=== PATIENT | female | born 1955 | race Caucasian/White ===

== ENCOUNTER 2017-10-20 22:34 | Observation (INO) | payer OTHER ==
[~2017-10-20 22:34] MED LIST: BACL20TA PO; CLON0.5T PO; GABA100C4 PO; GLIM2TAB PO; HYDR-3129 PO; LANTUS2P SQ; LISI-357 PO; METF-324 PO; PARO20TA PO; PERC10TA27 PO
[2017-10-20 22:38] VITALS: BP 110/77; PULSE 87; RESP 16; TEMP 97.7; O2SAT 94
--- NOTE | 2017-10-20 23:44 | PD ---
HPI Chief Complaint: Altered Mental Status Time Seen by Provider: 23:33 Travel History International Travel<30 days: No Contact w/Intl Traveler<30days: No Traveled to known affect area: No History of Present Illness HPI 61-year-old female presents to the emergency department from home by EMS transport for altered mentation. Patient has history of diabetes chronic pain syndrome seizure recurrent pancreatitis COPD and hepatitis C. No report of injury or fall. According to egg breaker report patient's blood sugar was elevated upon their arrival therefore they administered normal saline. Unknown history of ingestion of opiates or benzodiazepines. Medical records identifies the patient has been on both in the past. No report of alcohol consumption. No report of recent medical illness or febrile illness. Patient very somnolent but able to be awakened to name and mild tactile stimulation. Poor historian. [facility] Past Medical History Narrative Medical diabetes chronic pain syndrome seizure recurrent pancreatitis COPD depression hepatitis C; appendectomy cholecystectomy; alcohol use tobacco use substance use ; nursing notes reviewed Depression: Yes Cardiovascular Problems: Yes Chemotherapy: Yes (INTERFERON) Cirrhosis: Yes COPD: Yes Diabetes: Yes GERD: Yes Hepatitis: Yes (HEP C ) Pancreatitis: Yes Past Surgical History Abdominal Surgery: Yes (PANCREAS, GALLSTONES X 9) Appendectomy: Yes Cholecystectomy: Yes Hysterectomy: Yes Social History Alcohol Use: Yes (CURRENT 04/16/16.) Tobacco Use: Yes (2.5PPD) Substance Use: Yes Allergies-Medications (Allergen,Severity, Reaction): Coded Allergies: No Known Drug Allergies (Verified Allergy, Unknown, 10/20/17) Uncoded Allergies: steroids (Allergy, Severe, Rash, 04/16/16) Reported Meds & Prescriptions Reported Meds & Active Scripts Active Reported Omeprazole 40 Mg Cap 40 Mg DAILY Keppra (Levetiracetam) 1,000 Mg Tab 1,000 Mg PO BID Vitamin B-6 (Pyridoxine HCl) 50 Mg Tab 25 Mg PO DAILY Lisinopril 5 Mg Tab 5 Mg PO DAILY Melatonin 5 Mg Tab 3 Mg PO HS Vitamin E (Vitamin E Mixed) 100 Unit Tablet Synjardy (Empagliflozin-Metformin) 5-1,000 Mg Tab 1 Tab PO BIDPC Paroxetine (Paroxetine HCl) 40 Mg Tab 40 Mg PO DAILY Creon (Pancrelipase) 36,000-114,000-180,000 Units Cap 1 Cap PO TIDPC Review of Systems ROS Limitations: Altered Mental Status, Poor Historian Except as stated in HPI: all other systems reviewed are Neg Physical Exam Narrative GENERAL: Well-developed thin female GCS 13 SKIN: Warm and dry. HEAD: Atraumatic. Normocephalic. EYES: Pupils equal and round. No scleral icterus. No injection or drainage. ENT: No nasal bleeding or discharge. Mucous membranes pink and moist. NECK: Trachea midline. No JVD. No meningismus no nuchal rigidity. CARDIOVASCULAR: Regular rate and rhythm. RESPIRATORY: No accessory muscle use. Clear to auscultation. Breath sounds equal bilaterally. GASTROINTESTINAL: Abdomen soft, non-tender, nondistended. Hepatic and splenic margins not palpable. MUSCULOSKELETAL: Extremities without clubbing, cyanosis, or edema. No obvious deformities. NEUROLOGICAL: Drowsiness. No obvious cranial nerve deficits. Motor grossly within normal limits. Five out of 5 muscle strength in the arms and legs. No pronator drift. Slurring speech. Data Data Last Documented VS Vital Signs Date Time Temp Pulse Resp B/P (MAP) Pulse Ox O2 Delivery O2 Flow Rate FiO2 10/21/17 02:04 97.7 78 14 119/78 (92) 96 Room Air Orders Orders Electrocardiogram (10/20/17 23:33) Ammonia (10/20/17 23:33) Complete Blood Count With Diff (10/20/17 23:33) Comprehensive Metabolic Panel (10/20/17 23:33) Creatine Kinase (Cpk) (10/20/17 23:33) Prothrombin Time / Inr (Pt) (10/20/17 23:33) Act Partial Throm Time (Ptt) (10/20/17 23:33) Troponin I (10/20/17 23:33) Thyroid Stimulating Hormone (10/20/17 23:33) Urinalysis - C+S If Indicated (10/20/17 23:33) Blood Culture (10/20/17 23:33) Chest, Single Ap (10/20/17 23:33) Ct Brain W/O Iv Contrast(Rout) (10/20/17 23:33) Blood Glucose (10/20/17 23:33) Ecg Monitoring (10/20/17 23:33) Iv Access Insert/Monitor (10/20/17 23:33) Oximetry (10/20/17 23:33) Sodium Chloride 0.9% Flush (Ns Flush) (10/20/17 23:45) Drug Screen, Random Urine (10/20/17 23:33) Alcohol (Ethanol) (10/20/17 23:33) Tylenol (Acetaminophen) (10/20/17 23:33) Salicylates (Aspirin) (10/20/17 23:33) Lactic Acid (10/20/17 23:33) Naloxone Inj (Narcan Inj) (10/21/17 01:30) Blood Glucose (10/21/17 02:48) Beta Hydroxybutyrate (Acetone) (10/21/17 02:48) Naloxone Inj (Narcan Inj) (10/21/17 03:00) Sodium Chlorid 0.9% 500 Ml Inj (Ns 500 M (10/21/17 03:00) Lipase (10/21/17 02:48) Lactulose Liq (Lactulose Liq) (10/21/17 03:00) Labs Laboratory Tests Test 10/20/17 23:59 10/21/17 00:00 10/21/17 03:01 White Blood Count 7.8 TH/MM3 Red Blood Count 4.56 MIL/MM3 Hemoglobin 13.9 GM/DL Hematocrit 40.8 % Mean Corpuscular Volume 89.5 FL Mean Corpuscular Hemoglobin 30.6 PG Mean Corpuscular Hemoglobin Concent 34.1 % Red Cell Distribution Width 13.6 % Platelet Count 76 TH/MM3 Mean Platelet Volume 9.4 FL Neutrophils (%) (Auto) 71.9 % Lymphocytes (%) (Auto) 19.1 % Monocytes (%) (Auto) 6.5 % Eosinophils (%) (Auto) 1.3 % Basophils (%) (Auto) 1.2 % Neutrophils # (Auto) 5.6 TH/MM3 Lymphocytes # (Auto) 1.5 TH/MM3 Monocytes # (Auto) 0.5 TH/MM3 Eosinophils # (Auto) 0.1 TH/MM3 Basophils # (Auto) 0.1 TH/MM3 CBC Comment AUTO DIFF Differential Total Cells Counted 100 Neutrophils % (Manual) 53 % Band Neutrophils % 1 % Lymphocytes % 38 % Monocytes % 7 % Eosinophils % 1 % Neutrophils # (Manual) 4.2 TH/MM3 Differential Comment FINAL DIFF MANUAL Atypical Lymphocytes % Platelet Estimate LOW Platelet Morphology Comment NORMAL Prothrombin Time 10.5 SEC Prothromb Time International Ratio 1.0 RATIO Activated Partial Thromboplast Time 19.6 SEC Blood Urea Nitrogen 9 MG/DL Creatinine 0.60 MG/DL Random Glucose 367 MG/DL Total Protein 7.2 GM/DL Albumin 3.4 GM/DL Calcium Level 8.0 MG/DL Alkaline Phosphatase 129 U/L Aspartate Amino Transf (AST/SGOT) 23 U/L Alanine Aminotransferase (ALT/SGPT) 44 U/L Total Bilirubin 0.3 MG/DL Sodium Level 134 MEQ/L Potassium Level 4.1 MEQ/L Chloride Level 102 MEQ/L Carbon Dioxide Level 24.0 MEQ/L Anion Gap 8 MEQ/L Estimat Glomerular Filtration Rate 102 ML/MIN Lactic Acid Level 0.7 mmol/L Ammonia 42 MCMOL/L Total Creatine Kinase 39 U/L Troponin I LESS THAN 0.02 NG/ML Thyroid Stimulating Hormone 3rd Gen 0.706 uIU/ML Salicylates Level 4.6 MG/DL Ethyl Alcohol Level LESS THAN 3 MG/DL Urine Color YELLOW Urine Turbidity CLEAR Urine pH 6.0 Urine Specific [place] LESS/EQUAL 1.005 Urine Protein NEG mg/dL Urine Glucose (UA) 1000 OR GREATER mg/dL Urine Ketones TRACE mg/dL Urine Occult Blood NEG Urine Nitrite NEG Urine Bilirubin NEG Urine Urobilinogen 0.2 MG/DL Urine Leukocyte Esterase NEG Urine RBC 0-3 /hpf Urine WBC 0-2 /hpf Urine Squamous Epithelial Cells 0-5 /hpf Microscopic Urinalysis Comment CULT NOT INDICATED Urine Opiates Screen NEG Urine Barbiturates Screen NEG Urine Amphetamines Screen POS Urine Benzodiazepines Screen NEG Urine Cocaine Screen NEG Urine Cannabinoids Screen POS Lipase 39 U/L B-Hydroxybutyrate 1.28 MMOL/L MDM Medical Decision Making Medical Screen Exam Complete: Yes Emergency Medical Condition: Yes Medical Record Reviewed: Yes Interpretation(s) EKG: Normal sinus rhythm rate [address] elevation injury pattern poor R- wave progression septally age undetermined TSH 0.706 not elevated Serum alcohol level: Less than 3, not elevated Troponin I less than 0.02, not elevated CK 39 not elevated Serum ammonia level 42, mildly elevated Urinalysis glucosuria with mild ketones CBC & BMP Diagram 10/20/17 23:59 Total Protein 7.2, Albumin 3.4, Calcium Level 8.0 L, Alkaline Phosphatase 129 H , Aspartate Amino Transf (AST/SGOT) 23, Alanine Aminotransferase (ALT/SGPT) 44, Total Bilirubin 0.3 Vital Signs Date Time Temp Pulse Resp B/P (MAP) Pulse Ox O2 Delivery O2 Flow Rate FiO2 10/21/17 02:04 97.7 78 14 119/78 (92) 96 Room Air 10/21/17 00:59 83 18 111/68 (82) 95 Room Air 10/21/17 00:58 Room Air 10/20/17 22:38 97.7 87 16 110/77 (88) 94 Differential Diagnosis Altered mental status, uncontrolled diabetes, electrolyte disturbance, arrhythmia, TIA, CVA, ICH, polysubstance ingestion, opiate/benzodiazepine overdose, hepatic encephalopathy Narrative Course Patient placed on color television console monitor with continuous pulse oximetry IV access obtained; patient's blood sugar was found to be elevated and EMS administered normal saline bolus 1500 cc prior to arrival to the emergency department. We ordered along with EKG that sinus rhythm with no acute injury pattern specimens collected and sent for resulting. CT brain noncontrast no acute abnormality; chest x-ray no lobar infiltrate or acute process; CBC is automated differential within normal limits Chemistries remarkable for random glucose of 367 with normal bicarb and anion gap; patient identified to have mildly elevated serum ammonia at 42. Lactic acid is not elevated at 0.7 Urine drug screen positive for amphetamines and cannabinoids; still suspicious for some variant of opiate administration prior to arrival and therefore Narcan administered 0.4 mg and patient awakened Substance ingestion along with hyperglycemia plan for observation admission; discussed with Dr Baez repeat glucose: 271 Physician Communication Physician Communication call placed to [facility] service Diagnosis Primary Impression: Altered mental status Additional Impressions: History of substance abuse Hyperglycemia due to type 2 diabetes mellitus Qualified Codes: E11.65 - Type 2 diabetes mellitus with hyperglycemia Admitting Information Admitting Physician Requests: Observation Jenifer Walls MD Oct 20, 2017 23:44
[2017-10-20] MEDS ORDERED: SODIUM CHLORIDE 0.9% FLUSH 10 ML FLUSH IV FLUSH PRN (23:45)
--- NOTE | 2017-10-20 23:59 | RADRPT ---
EXAM DATE/TIME: 10/20/2017 23:40 [facility] COMPARISON: No previous studies available for comparison. INDICATIONS : Syncope. MEDICAL HISTORY : Unobtainable. SURGICAL HISTORY : Unobtainable. ENCOUNTER: Initial ACUITY: 1 day PAIN SCORE: Non-responsive. LOCATION: Bilateral chest FINDINGS: Single AP view of the chest. The lungs are clear. Cardiomediastinal silhouette within normal limits. No evidence of pleural effusion or pneumothorax. CONCLUSION: No acute cardiopulmonary disease identified. Ej Dumont MD on October 20, 2017 at 23:56 Board Certified Radiologist. This report was verified electronically.
[2017-10-21 00:28] LABS: BILIRUBIN, URINE NEG (NEG); BLOOD, URINE NEG (NEG); GLUCOSE,URINE 1000 OR GREATER mg/dL (NEG); KETONE, URINE TRACE mg/dL (NEG); NITRITE,URINE NEG (NEG); URINE COLOR YELLOW (YELLW/STRAW); URINE LEUKOCYTE ESTERASE NEG (NEG)
--- NOTE | 2017-10-21 00:30 | RADRPT ---
EXAM DATE/TIME: 10/21/2017 00:15 [facility] COMPARISON: No previous studies available for comparison. INDICATIONS : Altered mental status. RADIATION DOSE: 45.46 CTDIvol (mGy) MEDICAL HISTORY : Chronic obstructive pulmonary disease. Gastroesophageal reflux disease. Cardiovascular diseasePancrea titis. Hep C. Cirrhosis. Diabetes. SURGICAL HISTORY : Appendectomy. Cholecystectomy.Hysterectomy. ENCOUNTER: Initial ACUITY: 1 day PAIN SCALE: Non-responsive LOCATION: cranial TECHNIQUE: Multiple contiguous axial images were obtained of the head. Using automated exposure control and adj ustment of the mA and/or kV according to patient size, radiation dose was kept as low as reasonably a chievable to obtain optimal diagnostic quality images. DICOM format image data is available electro nically for review and comparison. FINDINGS: CEREBRUM: The ventricles are normal for age. No evidence of midline shift, mass lesion, hemorrhage or acute in farction. No extra-axial fluid collections are seen. POSTERIOR FOSSA: The cerebellum and brainstem are intact. The 4th ventricle is midline. The cerebellopontine angle i s unremarkable. EXTRACRANIAL: The visualized portion of the orbits is intact. SKULL: The calvaria is intact. No evidence of skull fracture. CONCLUSION: No acute intracranial findings. Ej Dumont MD on October 21, 2017 at 0:26 Board Certified Radiologist. This report was verified electronically.
[2017-10-21 00:47] LABS: CHLORIDE 102 MEQ/L (98-107); SODIUM (NA) 134 MEQ/L (136-145)
[2017-10-21 00:51] LABS: ALBUMIN 3.4 GM/DL (3.4-5.0); BLOOD UREA NITROGEN 9 MG/DL (7-18); GLUCOSE,RANDOM 367 MG/DL (74-106)
[2017-10-21 00:54] LABS: ALT (GPT) 44 U/L (10-53); AST (GOT) 23 U/L (15-37); GLOMERULAR FILTRATION RATE 102 ML/MIN (>89)
[2017-10-21 00:56] LABS: TOTAL BILIRUBIN ADULT 0.3 MG/DL (0.2-1.0); TOTAL PROTEIN 7.2 GM/DL (6.4-8.2)
[2017-10-21 00:57] LABS: ALKALINE PHOSPHATASE 129 U/L (45-117)
[2017-10-21 00:59] VITALS: BP 111/68; PULSE 83; RESP 18; O2SAT 95
[2017-10-21 00:59] LABS: PROTHROMBIN TIME - PATIENT 10.5 SEC (9.8-11.6); TROPONIN I LESS THAN 0.02 NG/ML (0.02-0.05)
[2017-10-21 01:01] LABS: AUTOMATED NEUTROPHIL # 5.6 TH/MM3 (1.8-7.7); BASOPHIL # 0.1 TH/MM3 (0-0.2); BASOPHIL % 1.2 % (0.0-2.0); EOSINOPHIL # 0.1 TH/MM3 (0-0.4); EOSINOPHIL % 1.3 % (0.0-4.0); HEMATOCRIT 40.8 % (35.0-46.0); HEMOGLOBIN 13.9 GM/DL (11.6-15.3); LYMPH % 19.1 % (9.0-44.0); LYMPHOCYTE # 1.5 TH/MM3 (1.0-4.8); MEAN CELL VOLUME 89.5 FL (80.0-100.0); MEAN CORPUSCULAR HEMOGLOBIN 30.6 PG (27.0-34.0); MEAN CORPUSCULAR HGB CONC 34.1 % (32.0-36.0); MEAN PLATELET VOLUME 9.4 FL (7.0-11.0); MONO % 6.5 % (0.0-8.0); MONOCYTE # 0.5 TH/MM3 (0-0.9); NEUT % 71.9 % (16.0-70.0); PLATELET COUNT 76 TH/MM3 (150-450); RED BLOOD COUNT 4.56 MIL/MM3 (4.00-5.30); RED CELL DISTRIBUTION WIDTH 13.6 % (11.6-17.2); WHITE BLOOD COUNT 7.8 TH/MM3 (4.0-11.0)
[2017-10-21 01:21] LABS: RBC, URINE 0-3 /hpf (0-3); SQUAMOUS EPITHELIAL CELL URINE 0-5 /hpf (0-5); WBC, URINE 0-2 /hpf (0-5)
[2017-10-21] MEDS ORDERED: NALOXONE HCL 0.4 MG/ML AMP IV PUSH PRN (01:30)
[2017-10-21 01:38] LABS: BANDS 1 % (0-6); LYMPHOCYTES 38 % (9-44); MONOCYTES 7 % (0-8); NEUTROPHIL # MANUAL DIFF 4.2 TH/MM3 (1.8-7.7); POLYS (SEG NEUTROPHILS) 53 % (16-70)
[2017-10-21] MEDS ORDERED: OMEP40CA2 (01:44)
[2017-10-21] MEDS ORDERED: PANC3600 PO (01:44)
[2017-10-21] MEDS ORDERED: LISI-519 PO (01:44)
[2017-10-21] MEDS ORDERED: VITA100T67 (01:44)
[2017-10-21] MEDS ORDERED: EMPA1TAB15 PO (01:44)
[2017-10-21] MEDS ORDERED: KEPP10002 PO (01:44)
[2017-10-21] MEDS ORDERED: MELA5 PO (01:44)
[2017-10-21] MEDS ORDERED: PARO40TA2 PO (01:44)
[2017-10-21] MEDS ORDERED: VITA50TA30 PO (01:44)
[2017-10-21 02:04] VITALS: BP 119/78; PULSE 78; RESP 14; TEMP 97.7; O2SAT 96
[2017-10-21] MEDS ORDERED: LACTULOSE SYRUP 20 GM/30 ML CUP PO ONE (03:00)
[2017-10-21] MEDS ORDERED: SODIUM CHLORID 0.9% 500 ML INJ 500 ML IV ONE (03:00)
[2017-10-21] MEDS ORDERED: NALOXONE HCL 0.4 MG/ML AMP IV PUSH ONE (03:00)
[2017-10-21] MEDS ORDERED: SODIUM CHLOR 0.9% 1000 ML INJ 1,000 ML IV SCH (03:43)
[2017-10-21] MEDS ORDERED: SENNOSIDES 8.6 MG TAB PO PRN (03:45)
[2017-10-21] MEDS ORDERED: ACETAMINOPHEN 325 MG TAB PO PRN (03:45)
[2017-10-21] MEDS ORDERED: LACTULOSE SYRUP 20 GM/30 ML CUP PO PRN (03:45)
[2017-10-21] MEDS ORDERED: MAGNESIUM HYDROXIDE SUSP 30 ML CUP PO PRN (03:45)
[2017-10-21] MEDS ORDERED: SODIUM CHLORIDE 0.9% FLUSH 10 ML FLUSH IV FLUSH PRN (03:45)
[2017-10-21] MEDS ORDERED: DEXTROSE 50% IN WATER 50 ML VIAL(D50) IV PUSH PRN (03:45)
[2017-10-21] MEDS ORDERED: ONDANSETRON HCL 4 MG/2 ML VIAL IVP PRN (03:45)
[2017-10-21] MEDS ORDERED: GLUCAGON 1 MG/ML VIAL OTHER PRN (03:45)
[2017-10-21] MEDS ORDERED: BISACODYL 10 MG SUPP RECTAL PRN (03:45)
[2017-10-21 04:09] VITALS: BP 130/80; PULSE 78; RESP 15; O2SAT 95
[2017-10-21 04:23] VITALS: BP 130/78
--- NOTE | 2017-10-21 07:08 | HHI.HP ---
[facility] Aryan Rollins M.D. Admission Diagnosis AMS, hyperglycemia with type 2 DM Diagnoses: Travel History International Travel<30 Days: No Contact w/Intl Traveler <30 Da: No Traveled to Known Affected Are: No History of Present Illness 61 year old female with DM, chronic pancreatitis, seizures, fibromyalgia, HCV, and history of alcohol abuse (sober x 6 months) brought to the ED via EMS for altered mental status. The patient states the last thing she recalls is taking a "sleeping pill" which she later clarifies was melatonin and falling asleep on the couch. She states the next thing she remembers is waking up in the hospital and she doesn't know why or how she got here. She doesn't know who called EMS but states she has two men staying with her at her house right now. She denies alcohol or drug use. She states she doesn't take any pain medications, benzodiazepines, or amphetamines. She denies any recent infections. Her only complaints are back pain and muscles spasms which are chronic for her. She states she takes Baclofen at home and follows with her PCP for chronic pain. She denies fever, chills, chest pain, shortness of breath, abdominal pain, nausea, or vomiting. Per the ER physician documentation, the patient became more awakened after receiving Narcan. She has no evidence of tongue biting and was not noted to be incontinent. This morning, she feels she is at her normal state of health for her which includes the above mentioned medical problems that are being managed as an outpatient. She would like to go home. She is ambulating independently to the bathroom with no issues. She is tolerating oral intake. Review of Systems Constitutional: DENIES: Fever, Chills, Dizziness Endocrine: DENIES: Polydipsia, Polyuria Eyes: DENIES: Blurred vision Ears, nose, mouth, throat: DENIES: Running Nose Respiratory: DENIES: Cough, Shortness of breath Cardiovascular: DENIES: Chest pain, Palpitations, Syncope Gastrointestinal: DENIES: Abdominal pain, Black stools, Bloody stools, Diarrhea , Nausea, Vomiting Genitourinary: DENIES: Dysuria Musculoskeletal: COMPLAINS OF: Muscle aches, Back pain, Neck pain Integumentary: DENIES: Rash Hematologic/lymphatic: DENIES: Bruising Neurologic: DENIES: Headache, Paresthesias, Tremor Psychiatric: DENIES: Confusion Past Family Social History Past Medical History Diabetes HCV COPD GERD Seizures H/o pancreatitis Depression Substance abuse Alcohol abuse Past Surgical History Appendectomy Cholecystectomy Hysterectomy Reported Medications Omeprazole 40 Mg Cap 40 Mg DAILY Keppra (Levetiracetam) 1,000 Mg Tab 1,000 Mg PO BID Vitamin B-6 (Pyridoxine HCl) 50 Mg Tab 25 Mg PO DAILY Lisinopril 5 Mg Tab 5 Mg PO DAILY Melatonin 5 Mg Tab 3 Mg PO HS Vitamin E (Vitamin E Mixed) 100 Unit Tablet Synjardy (Empagliflozin-Metformin) 5-1,000 Mg Tab 1 Tab PO BIDPC Paroxetine (Paroxetine HCl) 40 Mg Tab 40 Mg PO DAILY Creon (Pancrelipase) 36,000-114,000-180,000 Units Cap 1 Cap PO TIDPC Allergies: Coded Allergies: No Known Drug Allergies (Verified Allergy, Unknown, 10/20/17) Uncoded Allergies: steroids (Allergy, Severe, Rash, 04/16/16) Active Ordered Medications Acetaminophen (Tylenol) 650 mg Q6H PRN PO Last administered on 10/21/17at 08:25; Admin Dose 650 MG; Start 10/21/17 at 03:45 Bisacodyl (Dulcolax Supp) 10 mg DAILY PRN RECTAL; Start 10/21/17 at 03:45 Dextrose (D50w (Vial) Inj) 50 ml UNSCH PRN IV PUSH; Start 10/21/17 at 03:45 Glucagon (Glucagon Inj) 1 mg UNSCH PRN OTHER; Start 10/21/17 at 03:45 Insulin Aspart (NovoLOG SUPPLEMENTAL SCALE) 1 ACHS SLIDING SCALE SQ Last administered on 10/21/17at 08:26; Admin Dose 1; Start 10/21/17 at 08:00 Lactulose (Lactulose Liq) 30 ml DAILY PRN PO; Start 10/21/17 at 03:45 Lactulose (Lactulose Liq) 30 ml ONCE ONCE PO Last administered on 10/21/17at 03: 23; Admin Dose 30 ML; Start 10/21/17 at 03:00; Stop 10/21/17 at 03:01; Status DC Levetriacetam (Keppra) 1,000 mg BID PO Last administered on 10/21/17at 08:25; Admin Dose 1,000 MG; Start 10/21/17 at 09:00 Magnesium Hydroxide (Milk Of Magnesia Liq) 30 ml Q12H PRN PO; Start 10/21/17 at 03:45 Naloxone HCl (Narcan Inj) 0.4 mg ONCE ONCE IV PUSH Last administered on at 03:23; Admin Dose 0.4 MG; Start 10/21/17 at 03:00; Stop 10/21/17 at 03:01; Status DC Naloxone HCl (Narcan Inj) 0.4 mg UNSCH X1 PRN IV PUSH Last administered on at 02:36; Admin Dose 0.4 MG; Start 10/21/17 at 01:30 Ondansetron HCl (Zofran Inj) 4 mg Q6H PRN IVP; Start 10/21/17 at 03:45 Pantoprazole Sodium (Protonix) 40 mg DAILY PO Last administered on 10/21/17 08: 24; Admin Dose 40 MG; Start 10/21/17 at 09:00 Paroxetine HCl (Paxil) 40 mg DAILY PO Last administered on 10/21/17 08:24; Admin Dose 40 MG; Start 10/21/17 at 09:00 Senna/Docusate Sodium (Lisandra-Colace) 1 tab BID PO Last administered on 10/21/17 08:24; Admin Dose 1 TAB; Start 10/21/17 at 09:00 Sennosides (Senokot) 17.2 mg Q12H PRN PO; Start 10/21/17 at 03:45 Sodium Chloride 500 ml @ 500 mls/hr BOLUS ONCE IV Last administered on 03:00; Admin Dose 500 MLS/HR; Start 10/21/17 at 03:00; Stop 10/21/17 at 03:59 ; Status DC Sodium Chloride 1,000 ml @ 100 mls/hr Q10H IV Last administered on 10/21/17at 08: 32; Admin Dose 100 MLS/HR; Start 10/21/17 at 03:43 Sodium Chloride (NS Flush) 2 ml BID IV FLUSH Last administered on 10/21/17at 08:27 ; Admin Dose 2 ML; Start 10/21/17 at 09:00 Sodium Chloride (NS Flush) 2 ml UNSCH PRN IV FLUSH; Start 10/20/17 at 23:45 Sodium Chloride (NS Flush) 2 ml UNSCH PRN IV FLUSH; Start 10/21/17 at 03:45 Family History Noncontributory Social History Lives alone in a home EtOH: sober x 6 months, prior history of EtOH abuse Tobacco: 2.5 PPD Illicit drugs: denies but UDS + for amphetamines and cannabinoids Physical Exam Vital Signs Vital Signs Date Time Temp Pulse Resp B/P (MAP) Pulse Ox O2 Delivery O2 Flow Rate FiO2 10/21/17 04:23 70 15 130/78 (95) 95 10/21/17 04:09 78 15 130/80 (97) 95 Room Air 10/21/17 02:04 97.7 78 14 119/78 (92) 96 Room Air 10/21/17 00:59 83 18 111/68 (82) 95 Room Air 10/21/17 00:58 Room Air 10/20/17 22:38 97.7 87 16 110/77 (88) 94 Physical Exam GENERAL: Well-nourished, well-developed female sitting up in bed in no apparent distress. SKIN: No rashes, ecchymoses or lesions. Cool and dry. HEENT: Atraumatic. Normocephalic. No temporal or scalp tenderness. Pupils equal round and reactive. Extraocular motions intact. No scleral icterus. No injection or drainage. Nose without bleeding, purulent drainage or septal hematoma. Throat without erythema, tonsillar hypertrophy or exudate. Dry mucous membranes. Poor dentition. No evidence of tongue biting. Uvula midline. Airway patent. NECK: Trachea midline. No JVD or lymphadenopathy. Supple, nontender, no meningeal signs. CARDIOVASCULAR: Regular rate and rhythm without murmurs, gallops, or rubs. RESPIRATORY: Clear to auscultation. Breath sounds equal bilaterally. No wheezes , rales, or rhonchi. GASTROINTESTINAL: Abdomen soft, non-tender, nondistended. No hepato-splenomegaly , or palpable masses. No guarding. MUSCULOSKELETAL: Extremities without clubbing, cyanosis, or edema. No joint tenderness, effusion, or edema noted. No calf tenderness. Negative Homans sign bilaterally. NEUROLOGICAL: Awake and alert. Oriented to person, place, and time. Cranial nerves II through XII intact. Motor and sensory grossly within normal limits. Five out of 5 muscle strength in all muscle groups. Normal speech. Laboratory Laboratory Tests Test 10/20/17 23:59 10/21/17 00:00 10/21/17 03:01 White Blood Count 7.8 Red Blood Count 4.56 Hemoglobin 13.9 Hematocrit 40.8 Mean Corpuscular Volume 89.5 Mean Corpuscular Hemoglobin 30.6 Mean Corpuscular Hemoglobin Concent 34.1 Red Cell Distribution Width 13.6 Platelet Count 76 Mean Platelet Volume 9.4 Neutrophils (%) (Auto) 71.9 Lymphocytes (%) (Auto) 19.1 Monocytes (%) (Auto) 6.5 Eosinophils (%) (Auto) 1.3 Basophils (%) (Auto) 1.2 Neutrophils # (Auto) 5.6 Lymphocytes # (Auto) 1.5 Monocytes # (Auto) 0.5 Eosinophils # (Auto) 0.1 Basophils # (Auto) 0.1 CBC Comment AUTO DIFF Differential Total Cells Counted 100 Neutrophils % (Manual) 53 Band Neutrophils % 1 Lymphocytes % 38 Monocytes % 7 Eosinophils % 1 Neutrophils # (Manual) 4.2 Differential Comment FINAL DIFF MANUAL Atypical Lymphocytes Platelet Estimate LOW Platelet Morphology Comment NORMAL Prothrombin Time 10.5 Prothromb Time International Ratio 1.0 Activated Partial Thromboplast Time 19.6 Blood Urea Nitrogen 9 Creatinine 0.60 Random Glucose 367 Total Protein 7.2 Albumin 3.4 Calcium Level 8.0 Alkaline Phosphatase 129 Aspartate Amino Transf (AST/SGOT) 23 Alanine Aminotransferase (ALT/SGPT) 44 Total Bilirubin 0.3 Sodium Level 134 Potassium Level 4.1 Chloride Level 102 Carbon Dioxide Level 24.0 Anion Gap 8 Estimat Glomerular Filtration Rate 102 Lactic Acid Level 0.7 Ammonia 42 Total Creatine Kinase 39 Troponin I LESS THAN 0.02 Thyroid Stimulating Hormone 3rd Gen 0.706 Salicylates Level 4.6 Ethyl Alcohol Level LESS THAN 3 Urine Color YELLOW Urine Turbidity CLEAR Urine pH 6.0 Urine Specific [place] LESS/EQUAL 1.005 Urine Protein NEG Urine Glucose (UA) 1000 OR GREATER Urine Ketones TRACE Urine Occult Blood NEG Urine Nitrite NEG Urine Bilirubin NEG Urine Urobilinogen 0.2 Urine Leukocyte Esterase NEG Urine RBC 0-3 Urine WBC 0-2 Urine Squamous Epithelial Cells 0-5 Microscopic Urinalysis Comment CULT NOT INDICATED Urine Opiates Screen NEG Urine Barbiturates Screen NEG Urine Amphetamines Screen POS Urine Benzodiazepines Screen NEG Urine Cocaine Screen NEG Urine Cannabinoids Screen POS Lipase 39 B-Hydroxybutyrate 1.28 Date/Time Source Procedure Growth Status 10/20/17 23:59 Blood Peripheral Aerobic Blood Culture Pending Received 10/20/17 23:59 Blood Peripheral Anaerobic Blood Culture Pending Received Result Diagram: 10/20/17 2359 10/20/172358 Imaging Head CT 10/20/172332 Signed Impressions: Service Date/Time: Saturday, October 21, 2017 00:15 - CONCLUSION: No acute intracranial findings. Ej Dumont MD Chest X-Ray 10/20/172332 Signed Impressions: Service Date/Time: Friday, October 20, 2017 23:40 - CONCLUSION: No acute cardiopulmonary disease identified. Ej Dumont MD Caprini VTE Risk Assessment Caprini VTE Risk Assessment: Mod/High Risk (score >= 2) Caprini Risk Assessment Model Point Value = 1 Point Value = 2 Point Value = 3 Point Value = 5 Age 41-60 Minor surgery BMI > 25 kg/m2 Swollen legs Varicose veins or History of unexplained or recurrent spontaneous Oral contraceptives or hormone replacement Sepsis (< 1 month) Serious lung disease, including pneumonia (< 1 month) Abnormal pulmonary function Acute myocardial infarction Congestive heart failure (< 1 month) History of inflammatory bowel disease Medical patient at bed rest Age 61-74 Arthroscopic surgery Major open surgery (> 45 min) Laparoscopic surgery (> 45 min) Malignancy Confined to bed (> 72 hours) Immobilizing plaster cast Central venous access Age >= 75 History of VTE Family history of VTE Factor V Leiden Prothrombin [id number] Lupus anticoagulant Anticardiolipin antibodies Elevated serum homocysteine Heparin-induced thrombocytopenia Other congenital or acquired thrombophilia Stroke (< 1 month) Elective arthroplasty Hip, pelvis, or leg fracture Acute spinal cord injury (< 1 month) Prophylaxis Regimen Total Risk Factor Score Risk Level Prophylaxis Regimen 0-1 Low Early ambulation 2 Moderate Order ONE of the following: *Sequential Compression Device (SCD) *Heparin 5000 units SQ BID 3-4 Higher Order ONE of the following medications: *Heparin 5000 units SQ TID *Enoxaparin/Lovenox 40 mg SQ daily (WT < 150 kg, CrCl > 30 mL/min) *Enoxaparin/Lovenox 30 mg SQ daily (WT < 150 kg, CrCl > 10-29 mL/min) *Enoxaparin/Lovenox 30 mg SQ BID (WT < 150 kg, CrCl > 30 mL/min) AND/OR *Sequential Compression Device (SCD) 5 or more Highest Order ONE of the following medications: *Heparin 5000 units SQ TID (Preferred with Epidurals) *Enoxaparin/Lovenox 40 mg SQ daily (WT < 150 kg, CrCl > 30 mL/min) *Enoxaparin/Lovenox 30 mg SQ daily (WT < 150 kg, CrCl > 10-29 mL/min) *Enoxaparin/Lovenox 30 mg SQ BID (WT < 150 kg, CrCl > 30 mL/min) AND *Sequential Compression Device (SCD) Assessment and Plan Assessment and Plan 61 YOWF with history of DM, seizures, COPD, chronic pain, and HCV brought in by EMS for altered mental status. 1. AMS - VSS, protecting airway - EKG showing NSR with no ST changes - CT head negative for acute process - CBC, TSH, EtOH, troponin, lactic acid, and electrolytes WNL - Ammonia mildly elevated, LFTs WNL - Hyperglycemic with glucose 367 and mildly elevated hydroxybutyrate with a normal AG and bicarb - U/A with glucose and ketones - UDS + for amphetamines and cannabinoids though patient adamantly denies - Pt awakened with Narcan 2. DM with hyperglycemia - Glucose elevated at 367 on admission with mildly elevated beta hydroxybutyrate and normal anion gap and bicarb - U/A with ketones and glucose - Etiology of DM appears to be pancreatic insufficiency and I am not sure if oral medications will suffice if she has a loss of beta cells. To be followed as outpatient but will treat with insulin while in the hospital - Hold home PO meds and place on SSI per protocol 3. Seizures - Resume home Keppra 4. Depression - Resume home Paxil 5. COPD - Normal sats and no acute respiratory symptoms - Supplemental O2 PRN 6. HCV - Following with GI as outpatient FEN: - NS at 100 ml/hr - Normal electrolytes - Diabetic diet DVT prophylaxis: Pt ambulatory and expected to go home today Disposition: As of this morning, the patient is back to her normal self and would like to go home. Will review pending labs for this AM but anticipate discharge today. Code Status FULL Discussed Condition With Patient Shelly Palencia MD Oct 21, 2017 07:08
[2017-10-21 07:50] VITALS: BP 146/95; PULSE 78; RESP 20; TEMP 97.2; O2SAT 96
[2017-10-21] MEDS ORDERED: INSULIN ASPART SUPPLEMENTAL SCALE SQ SCH (08:00)
[2017-10-21] MEDS ORDERED: PANTOPRAZOLE SOD 40 MG DELAYED RELEASE TAB PO SCH (09:00)
[2017-10-21] MEDS ORDERED: DOCUSATE SODIUM 50 MG/SENNA 8.6 MG TAB PO SCH (09:00)
[2017-10-21] MEDS ORDERED: SODIUM CHLORIDE 0.9% FLUSH 10 ML FLUSH IV FLUSH SCH (09:00)
[2017-10-21] MEDS ORDERED: PARoxetine HCL 20 MG TAB PO SCH (09:00)
[2017-10-21] MEDS ORDERED: levETIRAcetam 500 MG TAB PO SCH (09:00)
[2017-10-21 09:25] VITALS: RESP 20
[2017-10-21] MEDS ORDERED: KETOROLAC TROMETHAMINE 30 MG/ML (IVP) VIAL IV PUSH ONE (10:00)
[2017-10-21 10:03] LABS: ACETAMINOPHEN LESS THAN 2.0 MCG/ML (10.0-30.0)
--- NOTE | 2017-10-21 10:34 | HHI.DCPOC ---
Discharge Care Plan Diagnosis: (1) Altered mental status (2) Hyperglycemia due to type 2 diabetes mellitus Goals to Promote Your Health * To prevent worsening of your condition and complications * To maintain your health at the optimal level Directions to Meet Your Goals Take your medications as prescribed Follow your dietary instruction Follow activity as directed Keep your appointments as scheduled Take your immunizations and boosters as scheduled If your symptoms worsen call your PCP, if no PCP go to Urgent Care Center or Emergency Room Smoking is Dangerous to Your Health. Avoid second hand smoke Call the 24-hour hour crisis hotline for domestic abuse at Shelly Palencia MD Oct 21, 2017 10:34
--- NOTE | 2017-10-21 16:20 | EKG ---
Date Performed: 10/20/2017 Time Performed: 23:43:02 PTAGE: 61 years EKG: Sinus rhythm Compared to previous tracing, HR is slower, otherwise no significant change NORMAL ECG PREVIOUS TRACING : 04/16/2016 18.52 DOCTOR: Aron Fernandez Interpretating Date/Time 10/21/2017 16:18:07
== END 2017-10-21 12:03 | disposition home or self-care (01) ==
LOC: PHED 22:34 → PHEDA 10-21 03:23 → PH3A 10-21 04:33
PROVIDERS: ADMIT Family Medicine; ATTEND Family Medicine
DX: E11.65 Type 2 diabetes mellitus with hyperglycemia (principal); J44.9 Chronic obstructive pulmonary disease, unspecified; K21.9 Gastro-esophageal reflux disease without esophagitis; K86.1 Other chronic pancreatitis; M62.830 Muscle spasm of back; G89.4 Chronic pain syndrome; M79.7 Fibromyalgia; F10.21 Alcohol dependence, in remission; Z79.84 Long term (current) use of oral hypoglycemic drugs; R56.9 Unspecified convulsions; K74.60 Unspecified cirrhosis of liver; B19.20 Unspecified viral hepatitis C without hepatic coma; F17.200 Nicotine dependence, unspecified, uncomplicated
CPT/HCPCS: 70450; 71045; 80053; 80307; 81001; 82010; 82140; 82550; 83605; 83690; 84443; 84484; 85007; 85027; 85610; 85730; 87040; 93005; 96361; 96372; 96374; 96375; 96376; 97161; 99285; G0378; G8987; G8988; J1815; J1885; J2310; J7030; J7040